=== PATIENT | female | born 1955 | race Caucasian/White ===

== ENCOUNTER 2021-08-27 21:50 | Inpatient (IN) | payer OTHER ==
[~2021-08-27] VITALS: Ht 162.6 cm; Wt 88.0 kg
[2021-08-27] MEDS ORDERED: ROSU20TA2 PO (22:12)
[2021-08-27] MEDS ORDERED: METF-495 PO (22:12)
[2021-08-27] MEDS ORDERED: GLIP10TA11 PO (22:12)
[2021-08-27] MEDS ORDERED: CHOL400T PO (22:12)
[2021-08-27] MEDS ORDERED: FAMO40TA7 PO (22:12)
[2021-08-27] MEDS ORDERED: CALC600T35 PO (22:12)
[2021-08-27] MEDS ORDERED: METO25TA6 PO (22:12)
[2021-08-27] MEDS ORDERED: OMEG10006 PO (22:12)
[2021-08-27] MEDS ORDERED: ALOG25TA2 PO (22:12)
[2021-08-27] MEDS ORDERED: ASPI81TA31 PO (22:12)
[2021-08-27] MEDS ORDERED: LOSA25TA27 PO (22:12)
[2021-08-27] MEDS ORDERED: IV NORMAL SALINE 1000 ML BAG IV ONE (22:30)
[2021-08-27] MEDS ORDERED: HYDROMORPHONE 1 MG/1 ML DISP.SYRIN IV ONE (22:30)
[2021-08-27] MEDS ORDERED: ONDANSETRON 4 MG/2 ML VIAL IV ONE (22:30)
[2021-08-27] MEDS ORDERED: HYDROMORPHONE 1 MG/1 ML DISP.SYRIN ONE (22:59)
[2021-08-27] MEDS ORDERED: ONDANSETRON 4 MG/2 ML VIAL ONE (22:59)
[2021-08-27 23:12] LABS: *BILIRUBIN,URIN NEGATIVE (NEGATIVE); *BLOOD, URINE 2+ (NEGATIVE); *CLARITY,URINE CLEAR (CLEAR); *COLOR,URINE YELLOW (YELLOW); *KETONES,URINE TRACE (NEGATIVE); *UROBILINOGEN,URINE 0.2 E.U./dl (NORMAL); LEUKOCYTE ESTERASE ,URINE 1+ (NEGATIVE); NITRITE, URINE NEGATIVE (NEGATIVE); PH,URINE 5.5 (5.0-8.0); UGLUCOSE NEGATIVE (NEGATIVE)
[2021-08-27 23:17] LABS: HEMATOCRIT 37.6 % (31.2-41.9); MEAN CORPUSCULAR HEMOGLOBIN 30.8 uug (24.7-32.8); MEAN CORPUSCULAR VOLUME 89.2 fL (75.5-95.3); PLATELET COUNT (AUTO) 239 K/uL (179-408)
[2021-08-27 23:21] LABS: BACTERIA,URINE FEW /HPF (NONE SEEN); SQUAMOUS EPITHELIAL CELL,UR MODERATE /HPF (NONE SEEN)
[2021-08-27 23:34] LABS: ALANINE AMINOTRANSFERASE 293 U/L (14-59); ALKALINE PHOSPHATASE 333 U/L (50-136); ASPARTATE AMINOTRANSFERASE 306 U/L (15-37); BILIRUBIN,DIRECT 1.4 mg/dL (0.0-0.2); BILIRUBIN,TOTAL 1.8 mg/dL (0.2-1.0); CARBON DIOXIDE 24 mmol/L (21-32); CHLORIDE 104 mmol/L (98-107); CREATININE 0.6 mg/dL (0.6-1.3); GLUCOSE 228 mg/dL (74-106); POTASSIUM 3.7 mmol/L (3.5-5.1); TOTAL PROTEIN, SERUM 7.5 g/dL (6.4-8.2); UREA NITROGEN, BLOOD 16 mg/dL (7-18)
[2021-08-28] MEDS ORDERED: IOHEXOL 300MG/ML 100 ML INFUS..BTL ONE (00:13)
[2021-08-28] MEDS ORDERED: SWABABLE VALVE TRANSFER SET EA MC ONE (00:13)
[2021-08-28] MEDS ORDERED: IV NORMAL SALINE 250 ML IV ONE (00:14)
[2021-08-28 01:12] LABS: LIPASE < 6000 U/L (73-393)
[2021-08-28] MEDS ORDERED: PIPERACILLIN SODIUM/TAZOBACTAM 3.375 G in IV DEXTROSE 5% 50 ML IV ONE (01:15)
[2021-08-28] MEDS ORDERED: IV NS 1000 ML 1,000 ML IV ONE (01:15)
[2021-08-28] MEDS ORDERED: PIPERACILLIN/TAZOBACTAM/D5W 50 ML IV ONE (01:17)
[2021-08-28] MEDS ORDERED: DEXTROSE 50% 50 ML DISP.SYRIN IV PRN (02:15)
[2021-08-28] MEDS ORDERED: IV NS 1000 ML 1,000 ML IV SCH (02:15)
[2021-08-28] MEDS ORDERED: MAGNESIUM HYDROXIDE 30 ML LIQUID UDC PO PRN (02:15)
[2021-08-28] MEDS ORDERED: ONDANSETRON 4 MG/2 ML VIAL IV PRN (02:15)
[2021-08-28] MEDS ORDERED: REMEDY ESSENTIAL ZINC PASTE 113 GM TP PRN (02:15)
[2021-08-28] MEDS ORDERED: MORPHINE SULFATE 2 MG/1 ML DISP.SYRIN IV PRN (02:15)
[2021-08-28] MEDS ORDERED: ACETAMINOPHEN 325 MG TABLET PO PRN (02:15)
[2021-08-28] MEDS ORDERED: PIPERACILLIN SODIUM/TAZOBACTAM 3.375 G in IV DEXTROSE 5% 50 ML IV SCH (06:00)
[2021-08-28] MEDS: BLOOD SUGAR DIAGNOSTIC 1 EACH STRIP VI SCH ×3 (06:00→18:03)
[2021-08-28] MEDS ORDERED: PIPERACILLIN SODIUM/TAZO 3.375 GM VIAL ONE (07:05)
[2021-08-28] MEDS ORDERED: INSULIN REGULAR, HUMAN 300 UNIT/3 ML VIAL ONE (07:22)
[2021-08-28] MEDS: INSULIN REGULAR, HUMAN 300 UNIT/3 ML VIAL SQ PRN ×2 (07:34→13:48)
[2021-08-28] MEDS ORDERED: IV NS 1000 ML 1,000 ML IV PRN (09:55)
[2021-08-28] MEDS ORDERED: METF-442 PO (10:00)
[2021-08-28] MEDS ORDERED: glipiZIDE 10 MG TABLET PO SCH (10:30)
[2021-08-28 10:54] VITALS: BP 136/53
[2021-08-28] MEDS: ASPIRIN 81 MG TAB.CHEW PO SCH (11:13)
[2021-08-28] MEDS: CALCIUM CARBONATE 600 MG TABLET PO SCH ×2 (11:13→16:53)
[2021-08-28] MEDS: CHOLECALCIFEROL 1,000 UNIT TABLET PO SCH (11:13)
[2021-08-28] MEDS: OMEGA-3 FATTY ACIDS/FISH OIL CAPSULE PO SCH ×2 (11:13→16:53)
[2021-08-28] MEDS: LINAGLIPTIN 5 MG TABLET PO SCH (11:13)
[2021-08-28] MEDS: LOSARTAN POTASSIUM 25 MG TABLET PO SCH (11:16)
[2021-08-28] MEDS: METOPROLOL TARTRATE 25 MG TABLET PO SCH ×2 (11:16→16:57)
[2021-08-28 14:00] VITALS: BP 132/50
[2021-08-28] MEDS: PIPERACILLIN SODIUM/TAZOBACTAM 3.375 G in IV DEXTROSE 5% 100 ML IV SCH (16:33)
[2021-08-28] MEDS ORDERED: METFORMIN HCL 500 MG TABLET PO SCH (18:00)
[2021-08-28 20:27] VITALS: BP 119/50
[2021-08-29] MEDS: ATORVASTATIN 40 MG TABLET PO SCH ×2 (01:48→20:43)
[2021-08-29] MEDS: PIPERACILLIN SODIUM/TAZOBACTAM 3.375 G in IV DEXTROSE 5% 100 ML IV SCH ×4 (01:49→21:29)
[2021-08-29] MEDS: FAMOTIDINE 20 MG TABLET PO SCH ×2 (01:49→20:43)
[2021-08-29 04:27] VITALS: BP 120/50
[2021-08-29] MEDS: BLOOD SUGAR DIAGNOSTIC 1 EACH STRIP VI SCH ×4 (06:00→21:28)
[2021-08-29 06:48] LABS: HEMATOCRIT 32.8 % (31.2-41.9); MEAN CORPUSCULAR HEMOGLOBIN 31.1 uug (24.7-32.8); MEAN CORPUSCULAR VOLUME 89.4 fL (75.5-95.3); PLATELET COUNT (AUTO) 204 K/uL (179-408)
[2021-08-29 07:14] LABS: BILIRUBIN,TOTAL 1.1 mg/dL (0.2-1.0); CREATININE 0.6 mg/dL (0.6-1.3); TOTAL PROTEIN, SERUM 6.5 g/dL (6.4-8.2)
[2021-08-29 07:25] LABS: POTASSIUM 2.8 mmol/L (3.5-5.1)
[2021-08-29] MEDS: LOSARTAN POTASSIUM 25 MG TABLET PO SCH (09:00)
[2021-08-29] MEDS: OMEGA-3 FATTY ACIDS/FISH OIL CAPSULE PO SCH ×2 (09:00→17:00)
[2021-08-29] MEDS: ASPIRIN 81 MG TAB.CHEW PO SCH (09:00)
[2021-08-29] MEDS: LINAGLIPTIN 5 MG TABLET PO SCH (09:00)
[2021-08-29] MEDS: CHOLECALCIFEROL 1,000 UNIT TABLET PO SCH (09:00)
[2021-08-29] MEDS: CALCIUM CARBONATE 600 MG TABLET PO SCH ×2 (09:00→17:00)
[2021-08-29] MEDS: METOPROLOL TARTRATE 25 MG TABLET PO SCH ×2 (09:00→20:43)
[2021-08-29] MEDS ORDERED: POTASSIUM CHLORIDE 20 MEQ TAB.PRT.SR PO ONE ×2 (09:15→12:00)
[2021-08-29 12:11] VITALS: BP 128/42
[2021-08-29] MEDS: POTASSIUM CHLORIDE 50 ML IV SCH ×5 (14:00→21:40)
[2021-08-29 15:28] VITALS: BP 154/66
[2021-08-29] MEDS ORDERED: LIDOCAINE HCL 1% 20 ML VIAL ONE (16:22)
[2021-08-29] MEDS ORDERED: BUPIVACAINE/EPI PF 0.5% 10 ML VIAL ONE (16:22)
[2021-08-29] MEDS ORDERED: FENTANYL CITRATE 100 MCG/2 ML AMPUL ONE (16:25)
[2021-08-29] MEDS ORDERED: MIDAZOLAM HCL 2 MG/2 ML VIAL ONE (16:26)
[2021-08-29] MEDS ORDERED: HYDROMORPHONE 2 MG/1 ML DISP.SYRIN ONE (16:26)
[2021-08-29] MEDS ORDERED: ROCURONIUM BROMIDE 50 MG/5 ML VIAL ONE (16:27)
[2021-08-29] MEDS ORDERED: BACITRACIN ZINC OINT 15 GM TUBE ONE (16:50)
[2021-08-29] MEDS ORDERED: ONDANSETRON 4 MG/2 ML VIAL ONE (19:31)
[2021-08-29] MEDS ORDERED: NEOSTIGMINE METHYLSULFATE 10 MG/10 ML VIAL ONE (19:31)
[2021-08-29] MEDS ORDERED: METOCLOPRAMIDE HCL 10 MG/2 ML VIAL ONE (19:31)
[2021-08-29] MEDS ORDERED: CEFAZOLIN 1 G VIAL ONE ×2 (19:31)
[2021-08-29] MEDS ORDERED: GLYCOPYRROLATE 0.2 MG/ML VIAL ONE ×3 (19:31)
[2021-08-29] MEDS ORDERED: LIDOCAINE-MPF 2% 5 ML VIAL ONE (19:31)
[2021-08-29] MEDS ORDERED: PROPOFOL 200 MG/20 ML BOTTLE ONE (19:31)
[2021-08-29] MEDS ORDERED: DEXAMETHASONE SOD PHOSPHATE 4 MG INJ ONE (19:31)
[2021-08-29 20:00] VITALS: BP 115/46
[2021-08-29] MEDS ORDERED: DEXTROSE 50% 50 ML DISP.SYRIN IV PRN (20:30)
[2021-08-29] MEDS: IV LACTATED RINGERS SOLUTION 1,000 ML IV PRN (20:39)
[2021-08-29] MEDS: INSULIN REGULAR, HUMAN 300 UNIT/3 ML VIAL SQ PRN (21:55)
[2021-08-30] MEDS: POTASSIUM CHLORIDE 50 ML IV SCH (00:43)
[2021-08-30] MEDS: IV LACTATED RINGERS SOLUTION 1,000 ML IV PRN ×3 (03:16→18:25)
[2021-08-30 04:00] VITALS: BP 109/41
[2021-08-30] MEDS: PIPERACILLIN SODIUM/TAZOBACTAM 3.375 G in IV DEXTROSE 5% 100 ML IV SCH ×3 (05:28→21:16)
[2021-08-30] MEDS: ACETAMINOPHEN 325 MG TABLET PO SCH ×3 (05:28→22:41)
[2021-08-30] MEDS: IBUPROFEN 800 MG TABLET PO SCH ×3 (05:28→22:41)
[2021-08-30] MEDS: GABAPENTIN 300 MG CAPSULE PO SCH ×3 (05:28→22:41)
[2021-08-30] MEDS: BLOOD SUGAR DIAGNOSTIC 1 EACH STRIP VI SCH ×4 (06:30→20:48)
[2021-08-30 07:03] LABS: HEMATOCRIT 34.7 % (31.2-41.9); MEAN CORPUSCULAR HEMOGLOBIN 30.6 uug (24.7-32.8); MEAN CORPUSCULAR VOLUME 90.1 fL (75.5-95.3); PLATELET COUNT (AUTO) 254 K/uL (179-408)
[2021-08-30 07:04] LABS: BILIRUBIN,TOTAL 0.7 mg/dL (0.2-1.0); CREATININE 0.8 mg/dL (0.6-1.3); MAGNESIUM 1.5 mg/dL (1.8-2.4); PHOSPHOROUS 3.9 mg/dL (2.5-4.9); POTASSIUM 3.9 mmol/L (3.5-5.1); TOTAL PROTEIN, SERUM 7.1 g/dL (6.4-8.2)
[2021-08-30] MEDS: LINAGLIPTIN 5 MG TABLET PO SCH (08:10)
[2021-08-30] MEDS: ASPIRIN 81 MG TAB.CHEW PO SCH (08:10)
[2021-08-30] MEDS: CALCIUM CARBONATE 600 MG TABLET PO SCH ×2 (08:10→16:16)
[2021-08-30] MEDS: CHOLECALCIFEROL 1,000 UNIT TABLET PO SCH (08:10)
[2021-08-30] MEDS: OMEGA-3 FATTY ACIDS/FISH OIL CAPSULE PO SCH ×2 (08:11→16:16)
[2021-08-30] MEDS: LOSARTAN POTASSIUM 25 MG TABLET PO SCH (08:11)
[2021-08-30] MEDS: METOPROLOL TARTRATE 25 MG TABLET PO SCH ×2 (08:13→16:16)
[2021-08-30] MEDS: INSULIN REGULAR, HUMAN 300 UNIT/3 ML VIAL SQ PRN ×4 (08:16→21:18)
[2021-08-30] MEDS: MAGNESIUM SULFATE/D5W 100 ML IV SCH ×2 (09:38→10:43)
[2021-08-30 12:00] VITALS: BP 105/52
[2021-08-30 16:00] VITALS: BP 115/46
[2021-08-30] MEDS: FAMOTIDINE 20 MG TABLET PO SCH (20:43)
[2021-08-30] MEDS: ATORVASTATIN 40 MG TABLET PO SCH (20:43)
[2021-08-30 20:44] VITALS: BP 145/52
[2021-08-31] MEDS: IV LACTATED RINGERS SOLUTION 1,000 ML IV PRN ×2 (01:40→10:19)
[2021-08-31 04:57] VITALS: BP 114/48
[2021-08-31] MEDS: GABAPENTIN 300 MG CAPSULE PO SCH ×2 (05:47→13:37)
[2021-08-31] MEDS: PIPERACILLIN SODIUM/TAZOBACTAM 3.375 G in IV DEXTROSE 5% 100 ML IV SCH ×2 (05:47→13:36)
[2021-08-31] MEDS: ACETAMINOPHEN 325 MG TABLET PO SCH ×2 (05:48→13:37)
[2021-08-31] MEDS: IBUPROFEN 800 MG TABLET PO SCH ×2 (05:48→13:37)
[2021-08-31 06:18] LABS: HEMATOCRIT 29.7 % (31.2-41.9); MEAN CORPUSCULAR VOLUME 89.7 fL (75.5-95.3); PLATELET COUNT (AUTO) 198 K/uL (179-408)
[2021-08-31 06:34] LABS: BILIRUBIN,TOTAL 0.6 mg/dL (0.2-1.0); CREATININE 0.8 mg/dL (0.6-1.3); PHOSPHOROUS 2.8 mg/dL (2.5-4.9); POTASSIUM 3.3 mmol/L (3.5-5.1); TOTAL PROTEIN, SERUM 5.8 g/dL (6.4-8.2)
[2021-08-31] MEDS: BLOOD SUGAR DIAGNOSTIC 1 EACH STRIP VI SCH ×2 (06:53→11:52)
[2021-08-31] MEDS: INSULIN REGULAR, HUMAN 300 UNIT/3 ML VIAL SQ PRN ×2 (06:56→11:53)
[2021-08-31] MEDS ORDERED: POTASSIUM CHLORIDE 20 MEQ TAB.PRT.SR PO ONE (09:15)
[2021-08-31] MEDS: CHOLECALCIFEROL 1,000 UNIT TABLET PO SCH (10:17)
[2021-08-31] MEDS: LOSARTAN POTASSIUM 25 MG TABLET PO SCH (10:18)
[2021-08-31] MEDS: ASPIRIN 81 MG TAB.CHEW PO SCH (10:18)
[2021-08-31] MEDS: METOPROLOL TARTRATE 25 MG TABLET PO SCH (10:18)
[2021-08-31] MEDS: LINAGLIPTIN 5 MG TABLET PO SCH (10:18)
[2021-08-31] MEDS: CALCIUM CARBONATE 600 MG TABLET PO SCH (10:18)
[2021-08-31] MEDS: OMEGA-3 FATTY ACIDS/FISH OIL CAPSULE PO SCH (10:18)
[2021-08-31] MEDS: MAGNESIUM SULFATE/D5W 100 ML IV SCH ×3 (10:19→13:36)
[2021-08-31 12:21] VITALS: BP 144/63
[2021-08-31] MEDS ORDERED: GABA300C PO (12:28)
[2021-08-31] MEDS ORDERED: IBUP-1957 PO (12:28)
== END 2021-08-31 16:10 | disposition home or self-care (01) | DRG 263 ==
LOC: ER 21:54 → MEDSURG3 08-28 08:17
PROVIDERS: ADMIT Nurse Practitioner Family; ATTEND Nurse Practitioner Acute Care
PROC: 0DNU4ZZ Release Omentum, Percutaneous Endoscopic Approach (ICD-10-PCS; principal; 2021-08-29)
PROC: 0FT44ZZ Resection of Gallbladder, Percutaneous Endoscopic Approach (ICD-10-PCS; principal; 2021-08-29)
DX: K85.10 Biliary acute pancreatitis without necrosis or infection (principal); K80.12 Calculus of gallbladder with acute and chronic cholecystitis without obstruction; N39.0 Urinary tract infection, site not specified; R17 Unspecified jaundice; B96.20 Unspecified Escherichia coli [E. coli] as the cause of diseases classified elsewhere; E11.9 Type 2 diabetes mellitus without complications; E78.5 Hyperlipidemia, unspecified; F17.210 Nicotine dependence, cigarettes, uncomplicated; Z16.11 Resistance to penicillins; Z71.6 Tobacco abuse counseling; I10 Essential (primary) hypertension; M19.90 Unspecified osteoarthritis, unspecified site; Z79.84 Long term (current) use of oral hypoglycemic drugs; K66.0 Peritoneal adhesions (postprocedural) (postinfection); Z20.822 Contact with and (suspected) exposure to COVID-19; R74.01 Elevation of levels of liver transaminase levels
CPT/HCPCS: 36415; 74181; 78445; 83605; 83690; 83735; 84100; 84132; 85025; 87077; 87086; 93005; 97161; A4663; A9537; G0378; J0690; J1100; J1170; J1815; J2250; J2270; J2405; J2543; J2765; J3010; J3475; J3480; J3490; J7040; J7120; Q9967

== ENCOUNTER 2021-10-10 22:36 | Inpatient (IN) | payer OTHER ==
[~2021-10-10] VITALS: Ht 152.4 cm; Wt 88.0 kg
[~2021-10-10 22:36] MED LIST: ALOG25TA2 PO; ASPI81TA31 PO; CALC600T35 PO; CHOL400T PO; FAMO40TA7 PO; GABA300C PO; GLIP10TA11 PO; IBUP-1957 PO; LOSA25TA27 PO; METF-442 PO; METO25TA6 PO; OMEG10006 PO; ROSU20TA2 PO
--- NOTE | 2021-10-10 22:55 | NUR ---
pt in room 4a c/o general weakness.
[2021-10-10 23:26] LABS: HEMATOCRIT 36.4 % (31.2-41.9); MEAN CORPUSCULAR HEMOGLOBIN 30.9 uug (24.7-32.8); MEAN CORPUSCULAR VOLUME 90.1 fL (75.5-95.3); PLATELET COUNT (AUTO) 213 K/uL (179-408)
[2021-10-10 23:29] LABS: *BILIRUBIN,URIN NEGATIVE (NEGATIVE); *BLOOD, URINE 1+ (NEGATIVE); *CLARITY,URINE CLEAR (CLEAR); *COLOR,URINE YELLOW (YELLOW); *KETONES,URINE NEGATIVE (NEGATIVE); *UROBILINOGEN,URINE 0.2 E.U./dl (NORMAL); LEUKOCYTE ESTERASE ,URINE NEGATIVE (NEGATIVE); NITRITE, URINE NEGATIVE (NEGATIVE); PH,URINE 6.5 (5.0-8.0); UGLUCOSE NEGATIVE (NEGATIVE)
[2021-10-10 23:33] LABS: CARBON DIOXIDE 27 mmol/L (21-32); CHLORIDE 103 mmol/L (98-107); CREATININE 0.7 mg/dL (0.6-1.3); GLUCOSE 230 mg/dL (74-106); POTASSIUM 3.5 mmol/L (3.5-5.1); UREA NITROGEN, BLOOD 12 mg/dL (7-18)
[2021-10-10 23:38] LABS: BACTERIA,URINE NONE SEEN /HPF (NONE SEEN); SQUAMOUS EPITHELIAL CELL,UR NONE SEEN /HPF (NONE SEEN); WBC,URINE NONE SEEN /HPF (0-3)
[2021-10-10 23:41] LABS: ALANINE AMINOTRANSFERASE 24 U/L (14-59); ALKALINE PHOSPHATASE 104 U/L (50-136); ASPARTATE AMINOTRANSFERASE 18 U/L (15-37); BILIRUBIN,DIRECT 0.1 mg/dL (0.0-0.2); BILIRUBIN,TOTAL 0.3 mg/dL (0.2-1.0); TOTAL PROTEIN, SERUM 7.2 g/dL (6.4-8.2)
[2021-10-11] MEDS ORDERED: ONDANSETRON ODT 4 MG TAB.RAPDIS SL ONE (00:30)
--- NOTE | 2021-10-11 00:37 | NUR ---
pt went for cat scan.
--- NOTE | 2021-10-11 00:48 | NUR ---
pt returned from cat scan.
--- NOTE | 2021-10-11 02:37 | NUR ---
spoke with Alfa at [facility] his call back number is [phone] he is requesting ed notes and facesheet to [phone]. he gave a verbal authorization for observation of [id number]
--- NOTE | 2021-10-11 02:47 | NUR ---
Documents were faxed to number [phone] as requested.
--- NOTE | 2021-10-11 04:06 | NUR ---
call to epic panel darrin Martinez
--- NOTE | 2021-10-11 04:10 | NUR ---
Tracie Martinez called back from epic panel.
[2021-10-11] MEDS ORDERED: ONDANSETRON 4 MG/2 ML VIAL IV PRN (04:15)
[2021-10-11] MEDS ORDERED: MAGNESIUM HYDROXIDE 30 ML LIQUID UDC PO PRN (04:15)
[2021-10-11] MEDS ORDERED: ACETAMINOPHEN 325 MG TABLET PO PRN (04:15)
[2021-10-11] MEDS ORDERED: REMEDY ESSENTIAL ZINC PASTE 113 GM TP PRN (04:15)
--- NOTE | 2021-10-11 04:27 | NUR ---
report given to Cassy OROURKE pt to go to room 315 tele status.
--- NOTE | 2021-10-11 04:29 | NUR ---
requested that the er superior court clerk roll over pt paperwork so I can bring the pt upstairs.
--- NOTE | 2021-10-11 04:30 | NUR ---
Report received from Arnoldo OROURKE
--- NOTE | 2021-10-11 05:07 | NUR ---
received rollover paperwork on the pt.
[2021-10-11] MEDS: IV NS 1000 ML 1,000 ML IV PRN ×2 (05:19→17:51)
--- NOTE | 2021-10-11 05:23 | NUR ---
pt transported to room 315 via [facility] with all belongings. HAVEN Madera in room to receive the pt.
[2021-10-11 05:48] VITALS: BP 122/46
--- NOTE | 2021-10-11 05:49 | NUR ---
Admitted to Tele, SR on monitor. Denies CP or SOB. Able to make needs known, able to ambulate. No distress noted. IV site intact running ordered fluids. Will endorse to day shift.
[2021-10-11] MEDS: glipiZIDE 10 MG TABLET PO SCH (06:33)
--- NOTE | 2021-10-11 07:30 | NUR ---
Sleeping, appears comfortable. Not in distress. IVF infusing
[2021-10-11 08:09] LABS: CREATININE 0.7 mg/dL (0.6-1.3); MEAN CORPUSCULAR VOLUME 89.4 fL (75.5-95.3); PLATELET COUNT (AUTO) 215 K/uL (179-408); POTASSIUM 3.7 mmol/L (3.5-5.1)
[2021-10-11 08:39] LABS: THYROID STIMULATING HORMONE 2.063 mIU/mL (0.358-3.740)
[2021-10-11] MEDS ORDERED: LINAGLIPTIN 5 MG TABLET PO SCH (09:00)
[2021-10-11] MEDS ORDERED: ATORVASTATIN 40 MG TABLET PO SCH (09:00)
[2021-10-11] MEDS: ASPIRIN 81 MG TAB.CHEW PO SCH (09:26)
[2021-10-11] MEDS: OMEGA-3 FATTY ACIDS/FISH OIL CAPSULE PO SCH ×2 (09:27→17:44)
[2021-10-11] MEDS: LOSARTAN POTASSIUM 25 MG TABLET PO SCH (09:27)
[2021-10-11] MEDS: CALCIUM CARBONATE 600 MG TABLET PO SCH ×2 (09:27→17:44)
[2021-10-11] MEDS: CHOLECALCIFEROL 1,000 UNIT TABLET PO SCH (09:28)
[2021-10-11] MEDS: METOPROLOL TARTRATE 25 MG TABLET PO SCH ×2 (09:28→20:06)
--- NOTE | 2021-10-11 11:30 | NUR ---
Feeling weak and hot after getting back to bed from the bathroom. Vital signs checked. Room temperature adjusted. Reassurance and support given.
[2021-10-11 12:00] VITALS: BP 121/46
[2021-10-11 15:58] VITALS: BP 132/55
--- NOTE | 2021-10-11 18:08 | NUR ---
Room air with O2 sat of 96%, not in distress. Denies chest pain. Feeling weak, concerned about condition.
[2021-10-11 20:00] VITALS: BP 127/61
[2021-10-12] VITALS: BP 139/45
[2021-10-12 04:00] VITALS: BP 110/69
[2021-10-12 06:11] LABS: HEMATOCRIT 35.3 % (31.2-41.9); MEAN CORPUSCULAR HEMOGLOBIN 30.4 uug (24.7-32.8); PLATELET COUNT (AUTO) 190 K/uL (179-408)
[2021-10-12] MEDS: glipiZIDE 10 MG TABLET PO SCH (06:12)
[2021-10-12] MEDS: IV NS 1000 ML 1,000 ML IV PRN (06:14)
[2021-10-12 06:31] LABS: CREATININE 0.6 mg/dL (0.6-1.3); MAGNESIUM 1.7 mg/dL (1.8-2.4); PHOSPHOROUS 4.3 mg/dL (2.5-4.9); POTASSIUM 3.4 mmol/L (3.5-5.1)
[2021-10-12] MEDS ORDERED: MAGNESIUM OXIDE 400 MG TABLET PO ONE (08:00)
[2021-10-12] MEDS ORDERED: POTASSIUM CHLORIDE 20 MEQ TAB.PRT.SR PO ONE (08:00)
--- NOTE | 2021-10-12 08:01 | NUR ---
AWAKE ALERT ASND VERBALLY RESPONSIVE NO SS OF PAIN OOR SOB. SR ON MONITOR
[2021-10-12] MEDS: ASPIRIN 81 MG TAB.CHEW PO SCH (08:55)
[2021-10-12] MEDS: OMEGA-3 FATTY ACIDS/FISH OIL CAPSULE PO SCH (08:55)
[2021-10-12 08:56] VITALS: BP 120/68
[2021-10-12] MEDS: LOSARTAN POTASSIUM 25 MG TABLET PO SCH (08:56)
[2021-10-12] MEDS: METOPROLOL TARTRATE 25 MG TABLET PO SCH (08:59)
[2021-10-12] MEDS: CALCIUM CARBONATE 600 MG TABLET PO SCH (08:59)
[2021-10-12] MEDS: CHOLECALCIFEROL 1,000 UNIT TABLET PO SCH (08:59)
[2021-10-12] MEDS ORDERED: [UNRECOGNIZED DRUG - OTHER] PO SCH (09:00)
[2021-10-12] MEDS ORDERED: ALOGLIPTIN 25 MG PO SCH (09:00)
--- NOTE | 2021-10-12 10:00 | NUR ---
SEEN BY HOSPITALIST AND SOLE LAYER HAND CLEARED TO BE DISCHARGED. SEE NOTES
--- NOTE | 2021-10-12 11:19 | NUR ---
DISCHARGED HOME ACCOMPANIED BY . MEDICATION AND FOLLOW-UP INSTRUCTION GIVEN TO PATIENT. NO SS OF PAIN OR DISTRESS
[2021-10-12] MEDS ORDERED: ATORVASTATIN 40 MG TABLET PO SCH (21:00)
== END 2021-10-12 11:15 | disposition home or self-care (01) | DRG 203 ==
LOC: ER 22:38 → TELE3 10-11 04:48 → MEDSURG3 10-12 11:04
PROVIDERS: ADMIT Nurse Practitioner Acute Care; ATTEND Internal Medicine
DX: M94.0 Chondrocostal junction syndrome [Tietze] (principal); E11.9 Type 2 diabetes mellitus without complications; E78.5 Hyperlipidemia, unspecified; F17.210 Nicotine dependence, cigarettes, uncomplicated; N95.1 Menopausal and female climacteric states; Z90.49 Acquired absence of other specified parts of digestive tract; I10 Essential (primary) hypertension; R53.81 Other malaise; Z79.84 Long term (current) use of oral hypoglycemic drugs; Z79.82 Long term (current) use of aspirin; Z79.899 Other long term (current) drug therapy; R39.15 Urgency of urination
CPT/HCPCS: 36415; 83605; 83735; 84100; 84443; 84484; 85025; 93005; A4663; G0378; J7040; Q0162

== ENCOUNTER 2021-12-05 11:47 | Emergency (ER) | payer OTHER ==
[~2021-12-05] VITALS: Ht 157.5 cm; Wt 90.7 kg
[~2021-12-05 11:47] MED LIST changes: -FAMO40TA7 PO; -GABA300C PO
[2021-12-05] MEDS ORDERED: DOXY-326 PO (12:13)
== END 2021-12-05 12:23 | disposition home or self-care (01) ==
LOC: ER 11:47
DX: L02.416 Cutaneous abscess of left lower limb (principal); E11.9 Type 2 diabetes mellitus without complications; Z79.84 Long term (current) use of oral hypoglycemic drugs; E78.5 Hyperlipidemia, unspecified; I10 Essential (primary) hypertension; Z79.899 Other long term (current) drug therapy
CPT/HCPCS: A4663

== ENCOUNTER 2022-12-04 16:50 | Emergency (ER) | payer MEDICARE, OTHER ==
[~2022-12-04] VITALS: Ht 167.6 cm; Wt 90.7 kg
[~2022-12-04 16:50] MED LIST changes: +DOXY-326 PO
[2022-12-04] MEDS ORDERED: CHOL200074 PO (17:35)
[2022-12-04] MEDS ORDERED: SITA100T PO (17:35)
[2022-12-04] MEDS ORDERED: ESOM40CA PO (17:35)
[2022-12-04 18:48] LABS: BASOPHILS # (AUTO) 0.1 K/UL (0.0-0.2); BASOPHILS % (AUTO) 0.7 % (0.0-2.0); DIFFERENTIAL COMMENT 1; EOSINOPHILS # (AUTO) 0.1 K/uL (0.0-0.7); EOSINOPHILS % (AUTO) 1.1 % (0.0-7.0); HEMATOCRIT 37.2 % (31.2-41.9); HEMOGLOBIN 12.4 g/dL (10.9-14.3); LYMPHOCYTES # (AUTO) 1.9 K/uL (0.8-4.8); LYMPHOCYTES % (AUTO) 15.2 % (20.5-51.5); MEAN CORPUSCULAR HEMOGLOBIN 30.1 uug (24.7-32.8); MEAN CORPUSCULAR HGB CONC 33 g/dL (32.3-35.6); MEAN CORPUSCULAR VOLUME 90.2 fL (75.5-95.3); MONOCYTES # (AUTO) 0.6 K/uL (0.1-1.30); MONOCYTES % (AUTO) 4.7 % (0.0-11.0); NEUTROPHILS # (AUTO) 9.8 K/uL (1.8-8.9); NEUTROPHILS % (AUTO) 78.3 % (38.5-71.5); PLATELET COUNT (AUTO) 236 K/uL (179-408); RED BLOOD CELL COUNT(AUTO) 4.13 MIL/uL (3.63-4.92); RED CELL DISTRIBUTION WIDTH 13.3 % (12.3-17.7); WHITE BLOOD COUNT (AUTO) 12.5 K/uL (3.8-11.8)
[2022-12-04 18:49] LABS: *BLOOD, URINE 3+ (NEGATIVE); *CLARITY,URINE TURBID (CLEAR); *COLOR,URINE Other (YELLOW); *KETONES,URINE 1+ (NEGATIVE); LEUKOCYTE ESTERASE ,URINE 3+ (NEGATIVE); NITRITE, URINE NEGATIVE (NEGATIVE); UGLUCOSE NEGATIVE (NEGATIVE)
[2022-12-04 18:50] LABS: *BILIRUBIN,URIN 3+ (NEGATIVE); *PROTEIN,URINE 3+ (NEGATIVE); RBC,URINE 20-50 /HPF (0-3)
[2022-12-04 18:57] LABS: CALCIUM 10.1 mg/dL (8.5-10.1); CARBON DIOXIDE 25 mmol/L (21-32); CHLORIDE 101 mmol/L (98-107); CREATININE 0.7 mg/dL (0.6-1.3); GLUCOSE 213 mg/dL (74-106); POTASSIUM 3.6 mmol/L (3.5-5.1); SODIUM SERUM 139 mmol/L (136-145); UREA NITROGEN, BLOOD 15 mg/dL (7-18)
[2022-12-04 19:05] LABS: ALANINE AMINOTRANSFERASE 31 U/L (14-59); ALBUMIN 3.7 g/dL (3.4-5.0); ALKALINE PHOSPHATASE 103 U/L (50-136); ASPARTATE AMINOTRANSFERASE 15 U/L (15-37); BILIRUBIN,DIRECT 0.1 mg/dL (0.0-0.2); BILIRUBIN,TOTAL 0.5 mg/dL (0.2-1.0); LIPASE 127 U/L (73-393); TOTAL PROTEIN, SERUM 7.3 g/dL (6.4-8.2)
[2022-12-04] MEDS ORDERED: CEPH500C2 PO (20:42)
[2022-12-04] MEDS ORDERED: CEFTRIAXONE 1 G VIAL IM ONE (20:45)
[2022-12-04] MEDS ORDERED: LIDOCAINE HCL 1% 20 ML VIAL ONE (20:47)
[2022-12-04] MEDS ORDERED: CEFTRIAXONE 1 G VIAL ONE (20:47)
[2022-12-04 20:55] VITALS: BP 150/72; O2SAT 98
== END 2022-12-04 20:55 | disposition home or self-care (01) ==
LOC: ER 16:50
DX: R10.30 Lower abdominal pain, unspecified (principal); N30.90 Cystitis, unspecified without hematuria; N95.0 Postmenopausal bleeding; N85.9 Noninflammatory disorder of uterus, unspecified; I10 Essential (primary) hypertension; E78.5 Hyperlipidemia, unspecified; E11.9 Type 2 diabetes mellitus without complications; Z79.84 Long term (current) use of oral hypoglycemic drugs; Z79.899 Other long term (current) drug therapy
CPT/HCPCS: 99285; 74176; 76856; 80076; 80048; 81001; 83690; 85025; 85730; 84484; 36415; 96372; J0696; J3490; A4663

== ENCOUNTER 2023-11-09 12:52 | Emergency (ER) | payer MEDICARE, OTHER ==
[~2023-11-09] VITALS: Ht 162.6 cm; Wt 88.9 kg
[~2023-11-09 12:52] MED LIST changes: -ALOG25TA2 PO; +CEPH500C2 PO; +CHOL200074 PO; -CHOL400T PO; -DOXY-326 PO; +ESOM40CA PO; -IBUP-1957 PO; -ROSU20TA2 PO; +SITA100T PO
[2023-11-09] MEDS ORDERED: CHOL200010 PO (13:10)
[2023-11-09] MEDS ORDERED: ICOS1CAP PO (13:10)
[2023-11-09] MEDS ORDERED: AREDS 2 PO (13:10)
[2023-11-09] MEDS ORDERED: OMEP40CA21 PO (13:10)
[2023-11-09] MEDS ORDERED: CLONIDINE HCL 0.1 MG TABLET ONE (13:16)
[2023-11-09 13:18] VITALS: BP 160/87
[2023-11-09] MEDS: CLONIDINE HCL 0.1 MG TABLET PO ONE (13:18)
[2023-11-09 13:58] LABS: BASOPHILS # (AUTO) 0.1 K/UL (0.0-0.2); BASOPHILS % (AUTO) 1.2 % (0.0-2.0); EOSINOPHILS # (AUTO) 0.2 K/uL (0.0-0.7); EOSINOPHILS % (AUTO) 2.1 % (0.0-7.0); HEMATOCRIT 38.4 % (31.2-41.9); HEMOGLOBIN 12.8 g/dL (10.9-14.3); LYMPHOCYTES # (AUTO) 2.2 K/uL (0.8-4.8); LYMPHOCYTES % (AUTO) 25.3 % (20.5-51.5); MEAN CORPUSCULAR HEMOGLOBIN 30.2 uug (24.7-32.8); MEAN CORPUSCULAR HGB CONC 33 g/dL (32.3-35.6); MEAN CORPUSCULAR VOLUME 90.8 fL (75.5-95.3); MONOCYTES # (AUTO) 0.5 K/uL (0.1-1.30); MONOCYTES % (AUTO) 5.6 % (0.0-11.0); NEUTROPHILS # (AUTO) 5.8 K/uL (1.8-8.9); NEUTROPHILS % (AUTO) 65.8 % (38.5-71.5); PLATELET COUNT (AUTO) 203 K/uL (179-408); RED BLOOD CELL COUNT(AUTO) 4.23 MIL/uL (3.63-4.92); WHITE BLOOD COUNT (AUTO) 8.8 K/uL (3.8-11.8)
[2023-11-09 14:05] LABS: DIFFERENTIAL COMMENT 1
[2023-11-09 14:16] LABS: ALBUMIN 3.8 g/dL (3.4-5.0); BILIRUBIN,DIRECT 0.1 mg/dL (0.0-0.2); BILIRUBIN,TOTAL 0.5 mg/dL (0.2-1.0); CALCIUM 9.4 mg/dL (8.5-10.1); CREATININE 0.7 mg/dL (0.6-1.3); MAGNESIUM 1.8 mg/dL (1.8-2.4); POTASSIUM 3.9 mmol/L (3.5-5.1)
[2023-11-09] MEDS ORDERED: CLON0.1T PO (15:28)
[2023-11-09 15:42] VITALS: O2SAT 99
== END 2023-11-09 15:43 | disposition home or self-care (01) ==
LOC: ER 12:52
DX: I10 Essential (primary) hypertension (principal); E11.65 Type 2 diabetes mellitus with hyperglycemia; E78.5 Hyperlipidemia, unspecified; Z79.82 Long term (current) use of aspirin; Z98.890 Other specified postprocedural states; Z79.899 Other long term (current) drug therapy
CPT/HCPCS: 36415; 83735; 85025; 93005; A4606; A4663

== ENCOUNTER 2025-01-27 23:49 | Emergency (ER) | payer MEDICARE, OTHER ==
[~2025-01-27] VITALS: Ht 157.5 cm; Wt 81.6 kg
[~2025-01-27 23:49] MED LIST changes: +AREDS 2 PO; +CHOL200010 PO; +CLON0.1T PO; -GLIP10TA11 PO; +GLIP10TA18 PO; +ICOS1CAP PO; +OMEP40CA21 PO
[2025-01-28] MEDS ORDERED: CEFTRIAXONE /D5W 50ML IVPB **ER PYXIS IV ONE (00:48)
[2025-01-28] MEDS: IV NORMAL SALINE 1000 ML BAG IV ONE (00:51)
[2025-01-28 00:58] LABS: PLATELET COUNT (AUTO) 204 K/uL (179-408); RED BLOOD CELL COUNT(AUTO) 4.04 MIL/uL (3.63-4.92); RED CELL DISTRIBUTION WIDTH 13.8 % (12.3-17.7); WHITE BLOOD COUNT (AUTO) 8.4 K/uL (3.8-11.8)
[2025-01-28 01:00] VITALS: BP 141/69
[2025-01-28 01:09] LABS: CREATININE 0.7 mg/dL (0.6-1.3); SODIUM SERUM 143 mmol/L (136-145); UREA NITROGEN, BLOOD 11 mg/dL (7-18)
[2025-01-28 01:10] LABS: *BILIRUBIN,URIN NEGATIVE (NEGATIVE); *CLARITY,URINE CLEAR (CLEAR); *COLOR,URINE LIGHT YELLOW (YELLOW); *KETONES,URINE NEGATIVE (NEGATIVE); *PROTEIN,URINE NEGATIVE (NEGATIVE); *UROBILINOGEN,URINE 0.2 E.U./dl (NORMAL); LEUKOCYTE ESTERASE ,URINE NEGATIVE (NEGATIVE); NITRITE, URINE NEGATIVE (NEGATIVE); UGLUCOSE NEGATIVE (NEGATIVE)
[2025-01-28 01:13] LABS: *BLOOD, URINE TRACE (NEGATIVE)
[2025-01-28 01:14] LABS: ASPARTATE AMINOTRANSFERASE 15 U/L (15-37); TOTAL PROTEIN, SERUM 7.4 g/dL (6.4-8.2)
[2025-01-28 01:23] LABS: SQUAMOUS EPITHELIAL CELL,UR FEW /HPF (NONE SEEN)
[2025-01-28 01:35] LABS: LACTIC ACID 2.2 mmol/L (0.4-2.0)
[2025-01-28] MEDS ORDERED: IOHEXOL 350 100 ML INFUS..BTL ONE (02:26)
[2025-01-28] MEDS ORDERED: IV NORMAL SALINE 250 ML IV ONE (02:26)
[2025-01-28] MEDS ORDERED: SWABABLE VALVE TRANSFER SET EA MC ONE (02:26)
[2025-01-28 04:10] VITALS: BP 141/69; TEMP 98; O2SAT 97
== END 2025-01-28 04:09 | disposition home or self-care (01) ==
LOC: ER 01-28 00:02
DX: E86.0 Dehydration (principal); R10.9 Unspecified abdominal pain; I11.9 Hypertensive heart disease without heart failure; E11.9 Type 2 diabetes mellitus without complications; A41.9 Sepsis, unspecified organism; E78.5 Hyperlipidemia, unspecified; M19.90 Unspecified osteoarthritis, unspecified site; Z79.82 Long term (current) use of aspirin; Z79.84 Long term (current) use of oral hypoglycemic drugs; Z79.899 Other long term (current) drug therapy; Z90.49 Acquired absence of other specified parts of digestive tract; Z20.822 Contact with and (suspected) exposure to COVID-19
CPT/HCPCS: 99291; 74175; 96365; 71045; 96361; 87426; 87804 ×2; 80076; 80048; 81001; 83880; 83690; 85025; 84145; 85730; 87040 ×2; 87086; 84484 ×2; 36415; 71275; 93005; 83605 ×2; J0696; Q9967; J7040; A4606; A4663